=== PATIENT | male | born 1975 | race Caucasian/White ===

== ENCOUNTER 2017-07-19 17:20 | Emergency (ER) | payer SELFPAY | END 2017-07-19 18:35 | disposition left against medical advice (07) | LOC: E/R 17:20 | DX: Z53.21 Procedure and treatment not carried out due to patient leaving prior to being seen by health care provider (principal) ==

== ENCOUNTER 2018-09-04 09:04 | Day surgery (SDC) | payer BC ==
[~2018-09-04 09:04] MED LIST: PROPOFOL 200 MG INJ
[2018-09-04] MEDS ORDERED: PROPOFOL 40 ML (10:46)
== END 2018-09-04 12:25 | disposition home or self-care (01) ==
LOC: GIL 09:04
DX: R19.4 Change in bowel habit (principal); K64.8 Other hemorrhoids; K44.9 Diaphragmatic hernia without obstruction or gangrene; K21.0 Gastro-esophageal reflux disease with esophagitis; K29.70 Gastritis, unspecified, without bleeding
CPT/HCPCS: 43239; 82962; 88305